=== PATIENT | female | born 1985 | race Caucasian/White ===

== ENCOUNTER 2017-05-02 13:01 | Emergency (ER) | payer MEDICAID, OTHER ==
[~2017-05-02] VITALS: Ht 152.4 cm; Wt 89.8 kg
[2017-05-02 14:05] VITALS: BP 128/80; PULSE 105
[2017-05-02 14:10] VITALS: BP 132/81; PULSE 101
[2017-05-02] MEDS ORDERED: DOXY10TA (14:19)
[2017-05-02 14:20] VITALS: BP 133/80; PULSE 106
[2017-05-02 14:30] VITALS: BP 136/79; PULSE 110; RESP 18; TEMP 98.2
[2017-05-02 15:00] VITALS: BP 125/83; PULSE 106
--- NOTE | 2017-05-02 15:01 | PD ---
HPI Chief Complaint HBP in office with Dr. Guzman Date Seen: May 02, 2017 Time Seen: 14:20 Travel History International Travel<30 Days: No Contact w/Intl Traveler<30Days: No Known Affected Area: No History of Present Illness HPI 32yo F at 33 wks presents to OB Triage with her for high blood pressure of 146mmHg systolic while in Dr. Guzman's office for her regular visit. She reports that she has had occasional headaches and was told in the past that she has had trace protein in urine, however for this visit she has not experienced any of those symptoms. She reports no blood or unusual discharge from vagina or with urination. She is not currently experiencing any pain, discomfort, or contraction like sensations. She denies smoking, drinking, and drugs. Her PMHx is significant for breast and ovarian cancer in her aunt and mother, respectively. She has no ongoing medical problems, no FamHx, and takes no medications, other than vitamins. She has a PSurgHx of laparoscopy a few years ago for endometriosis. Weeks Gestation: 33 Para: 0 : 1 Miscarriage: 0 : 0 History Past Medical History Medical History: Denies Significant Hx Obstetric History Obstetric History Past Surgical History Narrative Surgical Previous laparoscopy for evaluation of endometriosis a few years ago. Family History Narrative Family History Aunt - Breast CA Mother - Ovarian CA Social History Alcohol Use: No Tobacco Use: No Substance Abuse: No Allergies-Medications (Allergen,Severity, Reaction): Coded Allergies: No Known Allergies (Unverified , 05/02/17) Home Meds Reported Medications Doxylamine-Pyridoxine (Diclegis) 10-10 Mg Tab 05/02/17 Review of Systems Except as stated in HPI: all other systems reviewed are Neg HENT: Headaches (occasional headaches, none at time of exam) Gastrointestinal: Abdominal Pain ( pain) Physical Exam BP: 136/79mmHg HR: 100-110bpm Narrative GENERAL: Well-nourished, well-developed patient. SKIN: Warm and dry. CARDIOVASCULAR: Regular rate and rhythm without murmurs, gallops, or rubs. pulses equal bilaterally. RESPIRATORY: CTAB. Breath sounds equal bilaterally. No accessory muscle use. no rales, wheezes, or rhonchi. ABDOMEN/GI: Abdomen soft, non-tender, bowel sounds present, no rebound, no guarding Gravid to 33 weeks size EXTREMITIES: No cyanosis or edema. NEUROLOGICAL: Awake and alert and oriented to time, place, situation and person. CN II-XII intact. nonfocal. FHT's: Category: 1 Baseline: 130 Reactive: Y Variability: Mod Decels: None Contractions- q4 min- > irritability Cervical check- closed cervix -FFN negative Data Data Orders Orders Vital Signs (Adult) .ON ADMISSION (05/02/17 14:33) ^ Labor Status (05/02/17 14:33) Urinalysis - C+S If Indicated (05/02/17 14:33) ^ Non Stress Test (05/02/17 14:33) ^ Hydration (05/02/17 14:33) Cbc No Diff, Includes Plts (05/02/17 14:33) Comprehensive Metabolic Panel (05/02/17 14:33) Uric Acid (05/02/17 14:33) Protein Creat Ratio, Random Ur (05/02/17 14:33) MDM Medical Record Reviewed: Yes Narrative Course / MDM Note prepared by Jm Norton, MS4 Subsequent by Ryan Richards: Ms. Owens is a 32 yo G1 at 33 3/7 weeks who presents for concern for elevated BP at clinic today (SBP 146)- -VS measurements at OB ED have been reassuring -Cat 1 rhythm -mild contractions q4 min Plan: -Will check CBC, CMP, Uric acid, UA, protein/Cr ratio -Will continue to monitor EFM and CTG -Will give oral hydration Interval: -Contractions spaced out to irritability without regular contractions on oral hydration -BP normotensive (max SBP 136) -Labs: WBC- 12.5, Hgb 11.6, PLT 173 -CMP- K 3.3, Cr 0.38, LFT's- AST 12, ALT 18. Uric acid- 2 UA- no protein Urine protein/Cr ratio- 0.27 Cervical check- closed cervix -FFN negative Updated plan: -Reviewed labs with patient; patient reassured that she has a low probability of going into labor in the next 2 weeks. Patient understands need for continued BP monitoring. Patient will rest at home and follow-up with Dr. Guzman in 1-2 weeks Diagnosis Diagnosis: Primary Impression: Elevated blood pressure affecting , antepartum Disposition: 01 DISCHARGE HOME Condition: Stable Patient Instructions: General Instructions, Early Labor Signs (ED), Preeclampsia (ED) Ryan Richards MD, R3 May 02, 2017 15:01
[2017-05-02 16:10] LABS: HEMATOCRIT 33.9 % (35.0-46.0); HEMOGLOBIN 11.6 GM/DL (11.6-15.3); MEAN CELL VOLUME 94.7 FL (80.0-100.0); MEAN CORPUSCULAR HEMOGLOBIN 32.4 PG (27.0-34.0); MEAN CORPUSCULAR HGB CONC 34.2 % (32.0-36.0); MEAN PLATELET VOLUME 8.4 FL (7.0-11.0); PLATELET COUNT 173 TH/MM3 (150-450); RED BLOOD COUNT 3.58 MIL/MM3 (4.00-5.30); RED CELL DISTRIBUTION WIDTH 13.5 % (11.6-17.2); WHITE BLOOD COUNT 12.5 TH/MM3 (4.0-11.0)
[2017-05-02 16:17] LABS: BACTERIA, URINE RARE /hpf; BILIRUBIN, URINE NEG (NEG); BLOOD, URINE NEG (NEG); GLUCOSE,URINE NEG (NEG); KETONE, URINE NEG (NEG); MUCUS URINE FEW /lpf (OCC); NITRITE,URINE NEG (NEG); SQUAMOUS EPITHELIAL CELL URINE 2 /hpf (0-5); URINE COLOR YELLOW (YELLW/STRAW); URINE LEUKOCYTE ESTERASE TRACE (NEG)
[2017-05-02 16:21] LABS: ALBUMIN 2.9 GM/DL (3.4-5.0); AST (GOT) 12 U/L (15-37); BICARBONATE 23.6 MEQ/L (21.0-32.0); BLOOD UREA NITROGEN 4 MG/DL (7-18); CALCIUM 8.9 MG/DL (8.5-10.1); CHLORIDE 106 MEQ/L (98-107); CREATININE 0.38 MG/DL (0.50-1.00); GLOMERULAR FILTRATION RATE 198 ML/MIN (>89); GLUCOSE,RANDOM 83 MG/DL (74-106); SODIUM (NA) 138 MEQ/L (136-145)
[2017-05-02 16:22] LABS: ALT (GPT) 18 U/L (10-53)
[2017-05-02 16:24] LABS: ALKALINE PHOSPHATASE 112 U/L (45-117); TOTAL BILIRUBIN ADULT 0.2 MG/DL (0.2-1.0); TOTAL PROTEIN 6.6 GM/DL (6.4-8.2)
[2017-05-02 17:33] VITALS: BP 134/82; PULSE 98
== END 2017-05-02 18:56 | disposition home or self-care (01) ==
LOC: HOBED 13:01
DX: O13.3 Gestational [pregnancy-induced] hypertension without significant proteinuria, third trimester (principal); Z3A.33 33 weeks gestation of pregnancy
CPT/HCPCS: 59025; 80053; 81001; 82570; 82731; 84156; 84550; 85027

== ENCOUNTER 2017-05-18 12:19 | Emergency (ER) | payer MEDICAID ==
[~2017-05-18 12:19] MED LIST: DOXY10TA
[2017-05-18 13:07] VITALS: BP 137/92; PULSE 113
--- NOTE | 2017-05-18 13:13 | PD ---
HPI Chief Complaint elevated blood pressure in office Date Seen: May 18, 2017 Time Seen: 13:11 Travel History International Travel<30 Days: No Contact w/Intl Traveler<30Days: No Known Affected Area: No History of Present Illness HPI 32-year-old who is at 35 weeks [address] Guzman who comes in today with a high blood pressure in the office. Patient was seen for something similar 2 weeks ago and blood work was done that was normal and her blood pressure normalized as she remained in the OB ED. Patient denies any PIH symptoms at this point and is having good movement Weeks Gestation: 35 Para: 0 : 1 History Past Medical History Medical History: Denies Significant Hx Past Surgical History Narrative Surgical Laparoscopy Family History Family History: Negative Social History Alcohol Use: No Tobacco Use: No Substance Abuse: No Allergies-Medications (Allergen,Severity, Reaction): Coded Allergies: No Known Allergies (Unverified , 05/02/17) Home Meds Reported Medications Doxylamine-Pyridoxine (Diclegis) 10-10 Mg Tab 05/02/17 Review of Systems Except as stated in HPI: all other systems reviewed are Neg Physical Exam Narrative GENERAL: Well-nourished, well-developed patient. SKIN: Warm and dry. HEAD: Normocephalic and atraumatic. EYES: No scleral icterus. No injection or drainage. ENT: No nasal drainage noted. Mucous membranes pink. Airway patent. NECK: Supple, trachea midline. No JVD. CARDIOVASCULAR: Regular rate and rhythm without murmurs, gallops, or rubs. RESPIRATORY: Breath sounds equal bilaterally. No accessory muscle use. ABDOMEN/GI: Abdomen soft, non-tender, bowel sounds present, no rebound, no guarding Gravid to [-] weeks size 36 Fundal Height: [-] GENITOURINARY: Deferred External Genitalia: intact and normal in appearance BUS glands: [-] Cervix: [-] Dilatation: [-] Effacement: [-] Station: [-] Presentation: [-] Membranes: [intact or ruptured] Uterine Contractions: [-] Absent FHT's: Category: [-] 1 Baseline: [-] 140 Reactive: [-] Moderate Variability: [-] Moderate Decels: [-] Absent EXTREMITIES: No cyanosis or edema. BACK: Nontender without obvious deformity. No CVA tenderness. NEUROLOGICAL: Awake and alert. Motor and sensory grossly within normal limits. Five out of 5 muscle strength in all muscle groups. Normal speech. Data Data Vital Signs Reviewed: Yes Orders Orders Vital Signs (Adult) .ON ADMISSION (05/18/17 13:09) ^ Labor Status (05/18/17 13:09) Urinalysis - C+S If Indicated (05/18/17 13:09) ^ Non Stress Test (05/18/17 13:09) Diet Liquid (05/18/17 Lunch) Cbc No Diff, Includes Plts (05/18/17 13:09) Comprehensive Metabolic Panel (05/18/17 13:09) Uric Acid (05/18/17 13:09) Acetaminophen (Tylenol) (05/18/17 13:15) Us Ob Bpp Wo Nst (05/18/17 13:09) Protein Creat Ratio, Random Ur (05/18/17 13:09) Labs Laboratory Tests Test 05/18/17 13:10 White Blood Count 12.0 TH/MM3 Red Blood Count 4.05 MIL/MM3 Hemoglobin 13.0 GM/DL Hematocrit 38.4 % Mean Corpuscular Volume 94.8 FL Mean Corpuscular Hemoglobin 32.1 PG Mean Corpuscular Hemoglobin Concent 33.9 % Red Cell Distribution Width 13.8 % Platelet Count 183 TH/MM3 Mean Platelet Volume 8.4 FL Urine Color YELLOW Urine Turbidity CLOUDY Urine pH 7.5 Urine Specific [place] 1.015 Urine Protein 30 mg/dL Urine Glucose (UA) NEG mg/dL Urine Ketones NEG mg/dL Urine Occult Blood NEG Urine Nitrite NEG Urine Bilirubin NEG Urine Urobilinogen LESS THAN 2.0 MG/DL Urine Leukocyte Esterase LARGE Urine RBC 1 /hpf Urine WBC 4 /hpf Urine Squamous Epithelial Cells 17 /hpf Urine Transitional Epithelial Cells <1 /hpf Urine Amorphous Sediment FEW Urine Bacteria MOD /hpf Urine Mucus FEW /lpf Microscopic Urinalysis Comment CULTURE INDICATED Urine Random Creatinine 89 MG/DL Urine Random Total Protein 36 MG/DL Urine Protein/Creatinine Ratio 0.40 Blood Urea Nitrogen 7 MG/DL Creatinine 0.46 MG/DL Random Glucose 86 MG/DL Total Protein 7.0 GM/DL Albumin 3.1 GM/DL Calcium Level 9.8 MG/DL Uric Acid 2.6 MG/DL Alkaline Phosphatase 143 U/L Aspartate Amino Transf (AST/SGOT) 29 U/L Alanine Aminotransferase (ALT/SGPT) 26 U/L Total Bilirubin 0.2 MG/DL Sodium Level 138 MEQ/L Potassium Level 3.9 MEQ/L Chloride Level 106 MEQ/L Carbon Dioxide Level 24.0 MEQ/L Anion Gap 8 MEQ/L Estimat Glomerular Filtration Rate 158 ML/MIN [facility] Medical Record Reviewed: Yes Plan 32-year-old who is at 35-36 weeks gestation with intermittent mild hypertension, previous workup was 2 weeks ago that showed normal blood work. Will order a 24-hour urine protein collection and a follow-up to her OB physician now that her low pressures are much improved. BPP was done while the patient was here Diagnosis Diagnosis: Primary Impression: 35 weeks gestation of Additional Impression: Gestational hypertension Disposition: 01 DISCHARGE HOME Krysta Crabtree MD May 18, 2017 13:13
[2017-05-18 13:15] VITALS: BP 135/85; PULSE 103
[2017-05-18] MEDS ORDERED: ACETAMINOPHEN 325 MG TAB PO ONE (13:15)
[2017-05-18 13:30] VITALS: BP 109/85; PULSE 112
[2017-05-18 13:32] LABS: HEMATOCRIT 38.4 % (35.0-46.0); MEAN CELL VOLUME 94.8 FL (80.0-100.0); MEAN CORPUSCULAR HEMOGLOBIN 32.1 PG (27.0-34.0); MEAN CORPUSCULAR HGB CONC 33.9 % (32.0-36.0); MEAN PLATELET VOLUME 8.4 FL (7.0-11.0); PLATELET COUNT 183 TH/MM3 (150-450); RED BLOOD COUNT 4.05 MIL/MM3 (4.00-5.30); RED CELL DISTRIBUTION WIDTH 13.8 % (11.6-17.2)
[2017-05-18 13:40] LABS: AMORPHOUS SEDIMENT, URINE FEW; BACTERIA, URINE MOD /hpf; BILIRUBIN, URINE NEG (NEG); BLOOD, URINE NEG (NEG); GLUCOSE,URINE NEG (NEG); KETONE, URINE NEG (NEG); MUCUS URINE FEW /lpf (OCC); NITRITE,URINE NEG (NEG); PH, URINE 7.5 (5.0-8.5); SQUAMOUS EPITHELIAL CELL URINE 17 /hpf (0-5); TRANSITIONAL EPI CELLS, URINE <1 /hpf; URINE COLOR YELLOW (YELLW/STRAW); URINE LEUKOCYTE ESTERASE LARGE (NEG)
[2017-05-18 13:45] VITALS: BP 128/87; PULSE 102
[2017-05-18 13:54] LABS: ALBUMIN 3.1 GM/DL (3.4-5.0); ALT (GPT) 26 U/L (10-53); AST (GOT) 29 U/L (15-37); BLOOD UREA NITROGEN 7 MG/DL (7-18); CALCIUM 9.8 MG/DL (8.5-10.1); CHLORIDE 106 MEQ/L (98-107); CREATININE 0.46 MG/DL (0.50-1.00); GLOMERULAR FILTRATION RATE 158 ML/MIN (>89); GLUCOSE,RANDOM 86 MG/DL (74-106); SODIUM (NA) 138 MEQ/L (136-145)
[2017-05-18 13:57] LABS: ALKALINE PHOSPHATASE 143 U/L (45-117); TOTAL BILIRUBIN ADULT 0.2 MG/DL (0.2-1.0)
[2017-05-18 14:00] VITALS: BP 122/82; PULSE 96
== END 2017-05-18 16:29 | disposition home or self-care (01) ==
LOC: HOBED 12:19
DX: O13.3 Gestational [pregnancy-induced] hypertension without significant proteinuria, third trimester (principal); Z3A.35 35 weeks gestation of pregnancy; Z34.93 Encounter for supervision of normal pregnancy, unspecified, third trimester
CPT/HCPCS: 59025; 76816; 76819; 76820; 80053; 81001; 82570; 84156; 84157; 84550; 85027; 87086

== ENCOUNTER 2017-05-30 15:51 | Emergency (ER) | payer MEDICAID ==
[2017-05-30] VITALS (12 sets, daily range): BP systolic 122–145; BP diastolic 70–86; PULSE 80–91; TEMP 98.1
--- NOTE | 2017-05-30 17:27 | PD ---
HPI Chief Complaint High blood pressure in the office Date Seen: May 30, 2017 Travel History International Travel<30 Days: No Contact w/Intl Traveler<30Days: No Known Affected Area: No History of Present Illness HPI 32-year-old at 37 weeks 4 days comes in today with an elevated blood pressure in the office of 156/98. Patient has been seen several times here in the OB ED due to elevated blood pressures in the office. Her last full workup occurred May 18, her last 24-hour urine protein was done at the same time showed a total urine protein of 345. Group B strep is negative and her cervix was closed in the office today Weeks Gestation: 37 Para: 0 : 1 History Past Medical History Medical History: Denies Significant Hx Past Surgical History Narrative Surgical Diagnostic laparoscopy Family History Family History: Negative Social History Alcohol Use: No Tobacco Use: No Substance Abuse: No Allergies-Medications (Allergen,Severity, Reaction): Coded Allergies: No Known Allergies (Unverified , 05/02/17) Home Meds Reported Medications Doxylamine-Pyridoxine (Diclegis) 10-10 Mg Tab 05/02/17 Review of Systems Except as stated in HPI: all other systems reviewed are Neg Physical Exam Narrative GENERAL: Well-nourished, well-developed patient. SKIN: Warm and dry. HEAD: Normocephalic and atraumatic. EYES: No scleral icterus. No injection or drainage. ENT: No nasal drainage noted. Mucous membranes pink. Airway patent. NECK: Supple, trachea midline. No JVD. CARDIOVASCULAR: Regular rate and rhythm without murmurs, gallops, or rubs. RESPIRATORY: Breath sounds equal bilaterally. No accessory muscle use. ABDOMEN/GI: Abdomen soft, non-tender, bowel sounds present, no rebound, no guarding Gravid to [37-] weeks size Fundal Height: [-] GENITOURINARY: Deferred External Genitalia: intact and normal in appearance BUS glands: [-] Cervix: [-] Dilatation: [-] Effacement: [-] Station: [-] Presentation: [-] Membranes: [intact or ruptured] Uterine Contractions: [-Absent] FHT's: Category: [1-] Baseline: [140-] Reactive: [-] Moderate Variability: [-] Moderate Decels: [-] Absent EXTREMITIES: 2+ edema BACK: Nontender without obvious deformity. No CVA tenderness. NEUROLOGICAL: Awake and alert. Motor and sensory grossly within normal limits. Five out of 5 muscle strength in all muscle groups. Normal speech. Data Data Vital Signs Reviewed: Yes Group B Strep: Negative Labs Laboratory Tests Test 05/30/17 16:40 05/30/17 17:50 Urine Color YELLOW Urine Turbidity HAZY Urine pH 8.5 Urine Specific [place] 1.019 Urine Protein 30 mg/dL Urine Glucose (UA) NEG mg/dL Urine Ketones NEG mg/dL Urine Occult Blood NEG Urine Nitrite NEG Urine Bilirubin NEG Urine Urobilinogen LESS THAN 2.0 MG/DL Urine Leukocyte Esterase MOD Urine RBC 1 /hpf Urine WBC 4 /hpf Urine Squamous Epithelial Cells 3 /hpf Urine Bacteria MANY /hpf Urine Mucus FEW /lpf Microscopic Urinalysis Comment CULTURE INDICATED Urine Random Creatinine 110 MG/DL Urine Random Total Protein 39 MG/DL Urine Protein/Creatinine Ratio 0.35 Urine Opiates Screen NEG Urine Barbiturates Screen NEG Urine Amphetamines Screen NEG Urine Benzodiazepines Screen NEG Urine Cocaine Screen NEG Urine Cannabinoids Screen POS White Blood Count 9.4 TH/MM3 Red Blood Count 3.60 MIL/MM3 Hemoglobin 11.8 GM/DL Hematocrit 33.8 % Mean Corpuscular Volume 93.8 FL Mean Corpuscular Hemoglobin 32.7 PG Mean Corpuscular Hemoglobin Concent 34.9 % Red Cell Distribution Width 13.8 % Platelet Count 159 TH/MM3 Mean Platelet Volume 8.0 FL Blood Urea Nitrogen 7 MG/DL Creatinine 0.34 MG/DL Random Glucose 66 MG/DL Total Protein 6.6 GM/DL Albumin 2.8 GM/DL Calcium Level 8.7 MG/DL Uric Acid 2.8 MG/DL Alkaline Phosphatase 142 U/L Aspartate Amino Transf (AST/SGOT) 24 U/L Alanine Aminotransferase (ALT/SGPT) 20 U/L Total Bilirubin 0.3 MG/DL Sodium Level 138 MEQ/L Potassium Level 3.4 MEQ/L Chloride Level 105 MEQ/L Carbon Dioxide Level 24.6 MEQ/L Anion Gap 8 MEQ/L Estimat Glomerular Filtration Rate 225 ML/MIN [facility] Medical Record Reviewed: Yes Plan 32yo at 37-38 weeks gestation with gestational hypertension with proteinuria based on previous 24 hr urine protein. Blood pressures here have completely normalized with normal labs. Patient discussed with Dr Guzman today in office possibilities of induction of labor next week depending on blood pressure and labs. I have given her outpatient 24 hr urine protein collection but protein/creat ratio is available for his review. Follow up with OB provider within 48 hours for his recommendation Diagnosis Diagnosis: Primary Impression: 37 weeks gestation of Additional Impression: Gestational hypertension w/o significant proteinuria in 3rd trimester Disposition: 01 DISCHARGE HOME Krysta Crabtree MD May 30, 2017 17:27
[2017-05-30 18:23] LABS: HEMATOCRIT 33.8 % (35.0-46.0); HEMOGLOBIN 11.8 GM/DL (11.6-15.3); MEAN CELL VOLUME 93.8 FL (80.0-100.0); MEAN CORPUSCULAR HEMOGLOBIN 32.7 PG (27.0-34.0); MEAN CORPUSCULAR HGB CONC 34.9 % (32.0-36.0); PLATELET COUNT 159 TH/MM3 (150-450); RED CELL DISTRIBUTION WIDTH 13.8 % (11.6-17.2); WHITE BLOOD COUNT 9.4 TH/MM3 (4.0-11.0)
[2017-05-30 18:27] LABS: BACTERIA, URINE MANY /hpf; BILIRUBIN, URINE NEG (NEG); BLOOD, URINE NEG (NEG); GLUCOSE,URINE NEG (NEG); KETONE, URINE NEG (NEG); MUCUS URINE FEW /lpf (OCC); NITRITE,URINE NEG (NEG); PH, URINE 8.5 (5.0-8.5); SQUAMOUS EPITHELIAL CELL URINE 3 /hpf (0-5); URINE COLOR YELLOW (YELLW/STRAW); URINE LEUKOCYTE ESTERASE MOD (NEG)
[2017-05-30 18:43] LABS: ALBUMIN 2.8 GM/DL (3.4-5.0); ALT (GPT) 20 U/L (10-53); AST (GOT) 24 U/L (15-37); BICARBONATE 24.6 MEQ/L (21.0-32.0); BLOOD UREA NITROGEN 7 MG/DL (7-18); CALCIUM 8.7 MG/DL (8.5-10.1); CHLORIDE 105 MEQ/L (98-107); CREATININE 0.34 MG/DL (0.50-1.00); GLOMERULAR FILTRATION RATE 225 ML/MIN (>89); GLUCOSE,RANDOM 66 MG/DL (74-106); SODIUM (NA) 138 MEQ/L (136-145)
[2017-05-30 18:45] LABS: ALKALINE PHOSPHATASE 142 U/L (45-117); TOTAL BILIRUBIN ADULT 0.3 MG/DL (0.2-1.0); TOTAL PROTEIN 6.6 GM/DL (6.4-8.2)
== END 2017-05-30 20:12 | disposition home or self-care (01) ==
LOC: HOBED 15:51
DX: O13.3 Gestational [pregnancy-induced] hypertension without significant proteinuria, third trimester (principal); B96.89 Other specified bacterial agents as the cause of diseases classified elsewhere; F12.90 Cannabis use, unspecified, uncomplicated; Z3A.38 38 weeks gestation of pregnancy
CPT/HCPCS: 59025; 80053; 80307; 81001; 82570; 84156; 84550; 85027; 87086; 99283; G0481

== ENCOUNTER 2017-06-06 16:12 | Inpatient (IN) | payer MEDICAID ==
[2017-06-06] VITALS (31 sets, daily range): BP systolic 124–163; BP diastolic 61–93; PULSE 55–79; RESP 18–24; TEMP 98–98.4; O2SAT 94–100
[~2017-06-06] VITALS: Ht 149.9 cm; Wt 95.0 kg
[~2017-06-06 16:12] MED LIST changes: +LACTATED RINGER'S 1000 ML INJ 1,000 ML IV ONE; +LIDOCAINE 2%/EPINEPHrine PF 1:200,000 20ML SDV OTHER ONE; +ONDANSETRON HCL 4 MG/2 ML VIAL IV ONE; +OXYTOCIN 10 UNIT/ML AMP IV ONE; +PHENYLEPH/NS 1000 MCG/10 ML SYR IV ONE; +PROPOFOL 200 MG/20 ML AMP IV ONE; +SODIUM CHLORIDE 0.9% 20 ML VIAL IV ONE; +ceFAZolin INJ 1,000 MG VIAL IV ONE; +ePHEDrine/NS 25 MG/5 ML SYRINGE IV ONE
--- NOTE | 2017-06-06 16:42 | PD ---
HPI Chief Complaint Elevated blood pressure in the office Travel History International Travel<30 Days: No Contact w/Intl Traveler<30Days: No Known Affected Area: No History of Present Illness HPI 32-year-old , IUP at 38.3 care couple could by obesity, otherwise uncomplicated per patient report The patient presents from the office with elevated blood pressures for blood pressure evaluation. She was seen in OB diagnostics today for a biophysical profile was noted to have mildly elevated blood pressures in the 140s over 80s. She reports a were elevated and Dr. Guzman's office, but she is not sure what these blood pressures were. She denies any headache, visual changes, right upper quadrant or epigastric pain. She denies any painful contractions. She denies any leaking of fluid or vaginal bleeding. She reports good movement today. Weeks Gestation: 38 Para: 0 : 1 History Past Medical History Narrative Medical Obesity Obstetric History Obstetric History Past Surgical History Narrative Surgical Laparoscopy for endometriosis Family History Family History: Negative Social History Alcohol Use: No Tobacco Use: No Substance Abuse: No Allergies-Medications (Allergen,Severity, Reaction): Coded Allergies: No Known Allergies (Unverified , 05/02/17) Home Meds Reported Medications Doxylamine-Pyridoxine (Diclegis) 10-10 Mg Tab 05/02/17 Review of Systems Eyes: No: Diploplia, Blurred Vision, Visual changes, Pain, Photophobia, Other HENT: No: Headaches, Vertigo, Dental Difficulties, Lightheadedness, Other Gastrointestinal: No: Nausea, Vomiting, Diarrhea, Abdominal Pain, Hematemesis, Hematochezia, Constipation, Changes in Bowel Habits, Indigestion, Loss of Appetite, Other Physical Exam Narrative GENERAL: Well-nourished, well-developed patient. SKIN: Warm and dry. HEAD: Normocephalic and atraumatic. EYES: No scleral icterus. No injection or drainage. ENT: No nasal drainage noted. Mucous membranes pink. Airway patent. NECK: Supple, trachea midline. No JVD. CARDIOVASCULAR: Regular rate and rhythm without murmurs, gallops, or rubs. RESPIRATORY: Breath sounds equal bilaterally. No accessory muscle use. BREASTS: Bilateral exam showed no masses , no retractions, no nipple discharge. ABDOMEN/GI: Abdomen soft, non-tender, bowel sounds present, no rebound, no guarding Gravid GENITOURINARY: Deferred FHT's: heart tones in the 130s with moderate long-term variability, good accelerations, no decelerations noted. EXTREMITIES: No cyanosis or edema. BACK: Nontender without obvious deformity. NEUROLOGICAL: Awake and alert. Motor and sensory grossly within normal limits. Normal speech. Musculoskeletal: Grossly normal range of motion, gait, muscle strength Psychiatric: Grossly normal memory and affect Data Data Orders Orders Vital Signs (Adult) .ON ADMISSION (06/06/17 16:37) ^ Labor Status (06/06/17 16:37) Urinalysis - C+S If Indicated (06/06/17 16:37) ^ Non Stress Test (06/06/17 16:37) Cbc No Diff, Includes Plts (06/06/17 16:37) Comprehensive Metabolic Panel (06/06/17 16:37) Uric Acid (06/06/17 16:37) Protein Creat Ratio, Random Ur (06/06/17 16:38) MDM Plan Assessment/plan: 32-year-old 1. IUP at 38.3 2. Preeclampsia: Patient with elevated blood pressures, elevated PC ratio of 0.41, thrombocytopenia with a platelet decreased to 147,000, and weight gain of [address] Guzman would like to present seizure with delivery. I spoke with the patient and discussed the risks of induction of labor versus the risks of delivery as well as the risks of worsening preeclampsia with potential adverse maternal outcomes including but not limited to progression to eclampsia with maternal seizures/stroke, placental abruption, prolonged induction of labor with risks of chorioamnionitis and hemorrhage as well as other potential complications. The risks, benefits, and alternatives to delivery were discussed. The risks of were discussed including but not limited to pain, infection, bleeding, injury to other organs like the bladder, bowels, nerves, vessels, injury to the baby, need for repeat operation, need for hysterectomy, need for blood transfusion, wound infection and breakdown, and other possible complications all the patient's questions and her 's questions were answered and consent was signed. 3. Suspected macrosomia with maternal short stature: Patient with ultrasound today with approximately 9 pound estimated weight and the mother is 4 foot 11 inches tall 4. well-being: Reassuring testing with reactive NST and category 1 heart rate tracing. heart rate is reassuring and appropriate for gestational age 5. Hgb 11.7 Rachael Nettles MD Jun 06, 2017 16:42
--- NOTE | 2017-06-06 16:44 | HHI.PR ---
Subjective Remarks OB Hg NST report Indications: IUP at 38.3, obesity, elevated blood pressures heart tones in the 130s with moderate long-term variability, good accelerations, no decelerations noted. This is a category 1 heart rate tracing and reactive NST. Follow-up: Continue monitoring Final diagnosis: IUP at 30.3, obesity, preeclampsia Rachael Nettles MD Jun 06, 2017 16:44
[2017-06-06 17:12] LABS: HEMATOCRIT 34.5 % (35.0-46.0); HEMOGLOBIN 11.7 GM/DL (11.6-15.3); MEAN CELL VOLUME 94.3 FL (80.0-100.0); MEAN CORPUSCULAR HEMOGLOBIN 32.1 PG (27.0-34.0); MEAN PLATELET VOLUME 8.3 FL (7.0-11.0); PLATELET COUNT 146 TH/MM3 (150-450); RED BLOOD COUNT 3.66 MIL/MM3 (4.00-5.30); WHITE BLOOD COUNT 8.7 TH/MM3 (4.0-11.0)
[2017-06-06 17:23] LABS: AMORPHOUS SEDIMENT, URINE RARE; BACTERIA, URINE MANY /hpf; BILIRUBIN, URINE NEG (NEG); BLOOD, URINE TRACE (NEG); GLUCOSE,URINE NEG (NEG); KETONE, URINE NEG (NEG); MUCUS URINE MANY /lpf (OCC); NITRITE,URINE NEG (NEG); PH, URINE 6.5 (5.0-8.5); SQUAMOUS EPITHELIAL CELL URINE 13 /hpf (0-5); URINE COLOR YELLOW (YELLW/STRAW); URINE LEUKOCYTE ESTERASE LARGE (NEG)
[2017-06-06 17:30] LABS: ALBUMIN 2.8 GM/DL (3.4-5.0); ALT (GPT) 22 U/L (10-53); AST (GOT) 26 U/L (15-37); BICARBONATE 24.5 MEQ/L (21.0-32.0); BLOOD UREA NITROGEN 8 MG/DL (7-18); CALCIUM 8.8 MG/DL (8.5-10.1); CHLORIDE 106 MEQ/L (98-107); CREATININE 0.48 MG/DL (0.50-1.00); GLOMERULAR FILTRATION RATE 151 ML/MIN (>89); GLUCOSE,RANDOM 74 MG/DL (74-106); SODIUM (NA) 139 MEQ/L (136-145)
[2017-06-06 17:33] LABS: ALKALINE PHOSPHATASE 163 U/L (45-117); TOTAL BILIRUBIN ADULT 0.3 MG/DL (0.2-1.0)
[2017-06-06] MEDS ORDERED: LACTATED RINGER'S 1000 ML INJ 1,000 ML IV ONE (18:45)
[2017-06-06] MEDS ORDERED: LACTATED RINGER'S 1000 ML INJ 1,000 ML IV SCH (19:15)
--- NOTE | 2017-06-06 19:25 | HHI.HP ---
History & Physical H&P Patient Name: Sabi Owens Unit Number: [id number] Date of : 1985 Patient Status: Admitted Inpatient Attending Doctor: Oswaldo Guzman MD HPI HPI Chief Complaint Elevated blood pressure in the office Travel History International Travel<30 Days: No Contact w/Intl Traveler<30Days: No Known Affected Area: No History of Present Illness HPI 32-year-old , IUP at 38.3 care couple could by obesity, otherwise uncomplicated per patient report The patient presents from the office with elevated blood pressures for blood pressure evaluation. She was seen in OB diagnostics today for a biophysical profile was noted to have mildly elevated blood pressures in the 140s over 80s. She reports a were elevated and Dr. Guzman's office, but she is not sure what these blood pressures were. She denies any headache, visual changes, right upper quadrant or epigastric pain. She denies any painful contractions. She denies any leaking of fluid or vaginal bleeding. She reports good movement today. Weeks Gestation: 38 Para: 0 : 1 History (Limited) History Past Medical History Narrative Medical Obesity Obstetric History Obstetric History Past Surgical History Narrative Surgical Laparoscopy for endometriosis Family History Family History: Negative Social History Alcohol Use: No Tobacco Use: No Substance Abuse: No Allergies-Medications Allergies-Medications (Allergen,Severity, Reaction): Coded Allergies: No Known Allergies (Unverified , 05/02/17) Home Meds Reported Medications Doxylamine-Pyridoxine (Diclegis) 10-10 Mg Tab 05/02/17 ROS Review of Systems Eyes: No: Diploplia, Blurred Vision, Visual changes, Pain, Photophobia, Other HENT: No: Headaches, Vertigo, Dental Difficulties, Lightheadedness, Other Gastrointestinal: No: Nausea, Vomiting, Diarrhea, Abdominal Pain, Hematemesis, Hematochezia, Constipation, Changes in Bowel Habits, Indigestion, Loss of Appetite, Other Physical Exam Physical Exam Narrative GENERAL: Well-nourished, well-developed patient. SKIN: Warm and dry. HEAD: Normocephalic and atraumatic. EYES: No scleral icterus. No injection or drainage. ENT: No nasal drainage noted. Mucous membranes pink. Airway patent. NECK: Supple, trachea midline. No JVD. CARDIOVASCULAR: Regular rate and rhythm without murmurs, gallops, or rubs. RESPIRATORY: Breath sounds equal bilaterally. No accessory muscle use. BREASTS: Bilateral exam showed no masses , no retractions, no nipple discharge. ABDOMEN/GI: Abdomen soft, non-tender, bowel sounds present, no rebound, no guarding Gravid GENITOURINARY: Deferred FHT's: heart tones in the 130s with moderate long-term variability, good accelerations, no decelerations noted. EXTREMITIES: No cyanosis or edema. BACK: Nontender without obvious deformity. NEUROLOGICAL: Awake and alert. Motor and sensory grossly within normal limits. Normal speech. Musculoskeletal: Grossly normal range of motion, gait, muscle strength Psychiatric: Grossly normal memory and affect Data Data Data Orders Orders Vital Signs (Adult) .ON ADMISSION (06/06/17 16:37) ^ Labor Status (06/06/17 16:37) Urinalysis - C+S If Indicated (06/06/17 16:37) ^ Non Stress Test (06/06/17 16:37) Cbc No Diff, Includes Plts (06/06/17 16:37) Comprehensive Metabolic Panel (06/06/17 16:37) Uric Acid (06/06/17 16:37) Protein Creat Ratio, Random Ur (06/06/17 16:38) MDM MDM Plan Assessment/plan: 32-year-old 1. IUP at 38.3 2. Preeclampsia: Patient with elevated blood pressures, elevated PC ratio of 0.41, thrombocytopenia with a platelet decreased to 147,000, and weight gain of 20 [address] Guzman would like to present seizure with delivery. I spoke with the patient and discussed the risks of induction of labor versus the risks of delivery as well as the risks of worsening preeclampsia with potential adverse maternal outcomes including but not limited to progression to eclampsia with maternal seizures/stroke, placental abruption, prolonged induction of labor with risks of chorioamnionitis and hemorrhage as well as other potential complications. The risks, benefits, and alternatives to delivery were discussed. The risks of were discussed including but not limited to pain, infection, bleeding, injury to other organs like the bladder, bowels, nerves, vessels, injury to the baby, need for repeat operation, need for hysterectomy, need for blood transfusion, wound infection and breakdown, and other possible complications all the patient's questions and her 's questions were answered and consent was signed. 3. Suspected macrosomia with maternal short stature: Patient with ultrasound today with approximately 9 pound estimated weight and the mother is 4 foot 11 inches tall 4. well-being: Reassuring testing with reactive NST and category 1 heart rate tracing. heart rate is reassuring and appropriate for gestational age 5. Hgb 11.7 Rachael Nettles MD Jun 06, 2017 19:25
[2017-06-06] MEDS ORDERED: ceFAZolin 2 GM PREMIX 50 ML IV SCH (19:45)
[2017-06-06] MEDS ORDERED: MORPHINE SULFATE PF 5 MG/10 ML VIAL ONE (20:01)
[2017-06-06] MEDS ORDERED: ACETAMINOPHEN 1000 MG/100 ML 100 ML IV ONE ×2 (20:01→22:00)
[2017-06-06] MEDS ORDERED: CITRIC ACID-SODIUM CITRATE LIQ 30 ML UDC PO SCH (20:15)
[2017-06-06] MEDS ORDERED: EPIDURAL-DO NOT ADMINISTER ANTICOAGULANTS PRN (20:30)
[2017-06-06] MEDS ORDERED: EPIDURAL-NO SYSTEMIC NARCOTICS PRN (20:30)
[2017-06-06] MEDS ORDERED: EPIDURAL-DIPHENHYDRAMINE HCL 50 MG/ML VIAL IV PUSH PRN (20:30)
[2017-06-06] MEDS ORDERED: EPIDURAL-DIPHENHYDRAMINE HCL 50 MG CAP PO PRN (20:30)
[2017-06-06] MEDS ORDERED: EPIDURAL-NALOXONE HCL 0.4 MG/ML AMP IV PUSH PRN (20:30)
[2017-06-06] MEDS ORDERED: MAGNESIUM SULFATE 40 GM PREMIX 1,000 ML IV SCH (21:54)
[2017-06-06] MEDS ORDERED: OXYTOCIN 30 UNITS-500ML PREMIX 500 ML IV ONE ×2 (22:00)
[2017-06-06] MEDS ORDERED: ZOLPIDEM TARTRATE 5 MG TAB PO PRN (22:00)
[2017-06-06] MEDS ORDERED: SIMETHICONE 80 MG CHEWABLE TAB PO PRN (22:00)
[2017-06-06] MEDS ORDERED: CALCIUM GLUCONATE 10% 1 GM/10 ML VIAL IV PUSH PRN (22:00)
[2017-06-06] MEDS ORDERED: SODIUM CHLORIDE 0.9% FLUSH 10 ML FLUSH IV FLUSH PRN (22:00)
[2017-06-06] MEDS ORDERED: NIFEdipine 10 MG CAP PO PRN (22:00)
[2017-06-06] MEDS ORDERED: ONDANSETRON HCL 4 MG/2 ML VIAL IV PUSH PRN (22:00)
[2017-06-06] MEDS ORDERED: MAGNESIUM SULFATE 4 GM PREMIX 100 ML IV ONE (22:00)
[2017-06-06] MEDS ORDERED: OXYTOCIN 30 UNITS-500ML PREMIX 500 ML ONE (22:14)
[2017-06-06] MEDS: LACTATED RINGER'S 1000 ML INJ 1,000 ML IV SCH (22:30)
[2017-06-07] VITALS (34 sets, daily range): BP systolic 129–154; BP diastolic 63–96; PULSE 69–96; RESP 16–18; TEMP 97.6–98.2
[2017-06-07] MEDS ORDERED: PROMETHAZINE INJ 25 MG/ML VIAL IM ONE ×2 (02:45→03:00)
[2017-06-07] MEDS ORDERED: HYDROmorphone HCL PF 2 MG/ML VIAL IM ONE ×2 (02:45→03:00)
[2017-06-07 06:01] LABS: AUTOMATED NEUTROPHIL # 10.2 TH/MM3 (1.8-7.7); BASOPHIL % 0.2 % (0.0-2.0); EOSINOPHIL % 0.1 % (0.0-4.0); HEMATOCRIT 30.5 % (35.0-46.0); HEMOGLOBIN 10.6 GM/DL (11.6-15.3); LYMPH % 9.6 % (9.0-44.0); LYMPHOCYTE # 1.1 TH/MM3 (1.0-4.8); MEAN CELL VOLUME 93.7 FL (80.0-100.0); MEAN CORPUSCULAR HEMOGLOBIN 32.5 PG (27.0-34.0); MEAN CORPUSCULAR HGB CONC 34.7 % (32.0-36.0); MEAN PLATELET VOLUME 8.1 FL (7.0-11.0); MONO % 4.4 % (0.0-8.0); MONOCYTE # 0.5 TH/MM3 (0-0.9); NEUT % 85.7 % (16.0-70.0); PLATELET COUNT 125 TH/MM3 (150-450); RED BLOOD COUNT 3.26 MIL/MM3 (4.00-5.30); RED CELL DISTRIBUTION WIDTH 14.1 % (11.6-17.2); WHITE BLOOD COUNT 11.9 TH/MM3 (4.0-11.0)
[2017-06-07] MEDS: oxyCODONE/ACETAMINOPHEN 5 MG/325 MG TAB PO PRN ×4 (07:28→22:30)
[2017-06-07] MEDS: IBUPROFEN 600 MG TAB PO PRN ×3 (07:29→16:58)
[2017-06-07] MEDS: SODIUM CHLORIDE 0.9% FLUSH 10 ML FLUSH IV FLUSH SCH ×2 (07:46→21:00)
[2017-06-07] MEDS ORDERED: OXYTOCIN 30 UNITS-500ML PREMIX 500 ML IV PRN (08:00)
--- NOTE | 2017-06-07 08:45 | MP ---
cc: SONY GUZMAN DATE OF SURGERY 06/06/2017 PREOPERATIVE DIAGNOSIS 1. Intrauterine at 38 weeks. 2. Mild preeclampsia. 3. Short stature. 4. macrosomia. 5. Skin tag of mons pubis. POSTOPERATIVE DIAGNOSIS 1. Intrauterine at 38 weeks. 2. Mild preeclampsia. 3. Short stature. 4. macrosomia. 5. Skin tag of mons pubis. 6. 10% placental abruption. PROCEDURE Primary low transverse section and removal of skin tag the mons. ANESTHESIA Spinal. SURGEON Oswaldo Guzman M.D. FINDINGS Normal male with good Apgars, weight 8 pounds 11 ounces. Normal fallopian tubes, normal uterus, normal ovaries. Placenta had an old abruption, approximately 10% in the midportion of the placenta. COMPLICATIONS None. COUNTS Correct. ESTIMATED BLOOD LOSS 500 cc. FLUIDS Crystalloids. CONDITION The patient tolerated the procedure well and went to the recovery room in good condition. INDICATIONS FOR PROCEDURE This is a young lady who has been followed in my office and over the last several visits has had increased blood pressures. Today her blood pressures were markedly elevated. She had gained 20 pounds in 20 days. She had no signs or symptoms of preeclampsia but her protein to creatinine ratio was quite high. Her liver functions were normal. With the weight gain, the abnormal labs and increased blood pressure, the diagnosis of preeclampsia was made. I recommended section as her blood pressure was quite high and her cervix was not inducible; it was 1 cm, 50% effaced, very posterior, soft. The baby was very high. She agreed to proceed once we had discussed the risks and benefits of preeclampsia. PROCEDURE IN DETAIL The patient was taken to the operating room, identified by name band and verbally. She was given a spinal anesthetic. A Marin catheter was inserted. She was prepped and draped for section. A Pfannenstiel incision was taken down to the fascia. The fascia was taken off the rectus muscle by blunt and sharp dissection. The peritoneum was entered under direct vision without complication. The incision was extended with care to avoid the urinary bladder. A bladder blade was placed and a bladder flap created over the lower uterine segment which was well-developed. The uterus was then scored in a transverse manner along the lower uterine segment and taken down in the midline until the uterine cavity was entered. The incision was extended with the surgeon's finger. The vertex was grasped and delivered through the incision without difficulty. The hypopharynx and nasopharynx were suctioned. The remainder of the was delivered. The cord was doubly clamped and cut and the handed to the resuscitation team that was present. Cord blood was obtained. The placenta was delivered manually without difficulty. The uterus was curetted twice with a wet lap. The uterine incision was repaired with 2-0 Vicryl a running locking fashion, the second layer imbricating the first. The cul-de-sac and gutters were cleaned of blood and debris with a large amount of irrigation. The uterus was delivered back into the abdomen. The incision was again inspected and was hemostatic. The rectus muscles were re-approximated with 0 Vicryl in an interrupted fashion. The fascia was repaired with 0 Vicryl from lateral to midline bilaterally in a running fashion. The subcutaneous tissue was repaired with 3-0 Vicryl. The skin was repaired with 4-0 Monocryl in a subcuticular manner. Steri-Strips were applied. The wound was sterilely dressed. She tolerated the procedure well and went to the recovery room in good condition. R. MD MEME George/JESSICA /10:47 PM /8:15 AM
--- NOTE | 2017-06-07 12:06 | HHI.OB ---
Subjective Post Operative Day: 1 Objective Vitals/I&O Vital Signs Date Time Temp Pulse Resp B/P (MAP) Pulse Ox O2 Delivery O2 Flow Rate FiO2 06/07/17 11:38 17 06/07/17 11:38 98.1 06/07/17 11:35 77 141/80 (100) 06/07/17 11:00 18 06/07/17 10:17 74 143/92 (109) 06/07/17 10:00 17 06/07/17 09:19 88 149/96 (113) 06/07/17 09:00 18 06/07/17 08:17 89 141/93 (109) 06/07/17 07:24 85 151/89 (109) 06/07/17 07:19 98.1 18 06/07/17 06:03 87 06/07/17 06:03 150/95 (113) 06/07/17 06:02 18 06/07/17 05:03 81 136/87 (103) 06/07/17 05:02 18 06/07/17 04:01 96 18 154/94 (114) 06/07/17 03:01 97.6 80 143/91 (108) 06/07/17 03:00 18 06/07/17 02:02 87 143/91 (108) 06/07/17 02:01 18 06/07/17 01:01 70 129/82 (98) 06/07/17 01:01 18 06/07/17 00:01 92 18 148/92 (110) 06/06/17 23:37 79 18 151/85 (107) 06/06/17 23:37 98.0 06/06/17 23:15 163/83 (109) 06/06/17 23:14 77 18 97 06/06/17 23:05 156/82 (106) 06/06/17 23:00 98.0 06/06/17 22:55 154/90 (111) 06/06/17 22:53 77 151/89 (109) 98 06/06/17 22:53 24 06/06/17 22:45 75 06/06/17 22:45 23 94 06/06/17 22:40 124/74 (91) 06/06/17 22:30 72 20 130/71 (90) 96 06/06/17 22:25 100 06/06/17 22:25 20 124/61 (82) 06/06/17 22:15 64 20 129/64 (85) 99 06/06/17 22:00 75 23 129/68 (88) 98 06/06/17 21:50 100 06/06/17 19:20 70 06/06/17 19:16 69 153/93 (113) 06/06/17 19:15 70 06/06/17 19:06 98.4 06/06/17 19:04 57 18 157/83 (107) 06/06/17 17:16 62 140/76 (97) 06/06/17 17:15 64 06/06/17 17:10 72 06/06/17 17:05 72 06/06/17 17:01 55 138/77 (97) 06/06/17 17:00 55 06/06/17 16:51 18 06/06/17 16:45 65 06/06/17 16:45 66 150/92 (111) 06/06/17 16:40 68 06/06/17 16:35 75 06/06/17 16:30 64 153/91 (111) 06/06/17 16:30 69 06/06/17 16:29 63 154/79 (104) Result Diagram: 06/07/17 0458 06/06/17 8695 Objective Remarks GENERAL: Well-nourished, well-developed patient. CARDIOVASCULAR: Regular rate and rhythm without murmurs, gallops, or rubs. RESPIRATORY: Breath sounds equal bilaterally. No accessory muscle use. ABDOMEN/GI: Abdomen soft, non-tender, bowel sounds present. Incision: pressure dressing, Clean, dry and intact. Fundus: Firm, non-tender at umbilicus. GENITOURINARY: Light to moderate bleeding, paulson to bsd clear. EXTREMITIES: No cyanosis or edema, non-tender, without signs of DVT, sequential on bilateral lower extremities Medications and IVs Current Medications Medications (Trade) Dose Ordered Sig/Rupesh Route Start Time Stop Time Status Last Admin Lactated Ringer's 1,000 ml @ 100 mls/hr Q10H IV 06/07/17 02:54 06/07/17 22:53 06/06/17 22:30 Oxytocin 500 ml @ 100 mls/hr UNSCH X1 PRN IV 06/07/17 08:00 06/08/17 07:59 (NS Flush) 2 ml BID IV FLUSH 06/07/17 09:00 (NS Flush) 2 ml UNSCH PRN IV FLUSH 06/06/17 22:00 (Mylicon Chew) 80 mg QID PRN PO 06/06/17 22:00 (Motrin) 600 mg Q6H PRN PO 06/06/17 22:00 06/07/17 07:29 (Percocet 5-325 Mg) 1 tab Q4H PRN PO 06/06/17 22:00 (Percocet 5-325 Mg) 2 tab Q4H PRN PO 06/06/17 22:00 06/07/17 11:48 Cefazolin Sodium 1000 mg/Sodium Chloride 100 ml @ 200 mls/hr Q8H IV 06/07/17 04:00 06/07/17 12:29 06/07/17 11:41 (Saida-Colace) 2 tab Q12H PRN PO 06/06/17 22:00 (Ambien) 5 mg HS PRN PO 06/06/17 22:00 (M-M-R Ii Inj) 0.5 ml ONCE ONCE SQ 06/07/17 16:00 06/07/17 16:01 (Boostrix Inj) 0.5 ml ONCE ONCE IM 06/07/17 16:00 06/07/17 16:01 (Zofran Inj) 4 mg Q6H PRN IV PUSH 06/06/17 22:00 Magnesium Sulfate 1,000 ml @ 50 mls/hr Q20H IV 06/06/17 21:54 06/06/17 22:45 (Procardia) 10 mg NOW PRN PO 06/06/17 22:00 06/07/17 21:59 (Calcium Gluconate Inj) 1 gm UNSCH PRN IV PUSH 06/06/17 22:00 Miscellaneous Information NO SYSTEMIC NARCOTICS TO BE GIVEN FO... UNSCH PRN .XX 06/06/17 20:30 06/07/17 19:29 (Narcan Inj) 0.4 mg UNSCH PRN IV PUSH 06/06/17 20:30 06/07/17 19:29 (Benadryl Inj) 25 mg Q6H PRN IV PUSH 06/06/17 20:30 06/07/17 19:29 (Benadryl) 50 mg Q6H PRN PO 06/06/17 20:30 06/07/17 19:29 Miscellaneous Information ALL NURSING DEPARTMENTS UNSCH PRN .XX 06/06/17 20:30 06/07/17 19:29 Assessment/Plan Problem List: (1) [place] ICD Codes: N91.2 - Amenorrhea, unspecified Plan: daily oral iron once she is no longer taking pain medication (2) Preeclampsia ICD Codes: O14.90 - Unspecified pre-eclampsia, unspecified trimester Plan: monitor bp and signs and symptoms (3) Thrombocythemia ICD Codes: D47.3 - Essential (hemorrhagic) thrombocythemia Status: Resolved Plan: monitor labs (4) S/P primary low transverse ICD Codes: Z98.891 - History of uterine scar from previous surgery Plan: routine Assessment and Plan POD #1 pt doing well pain well managed with oral pain medication bp's 140's /80-90's pt on magnesium sulfate, to be dc later tonight labs stable, will monitor labs and s/s of pre-eclampsia pt bonding with routine care for c/section Discharge Planning dc home in 2 days Micki Haynes Jun 07, 2017 12:06
[2017-06-07] MEDS: LACTATED RINGER'S 1000 ML INJ 1,000 ML IV SCH ×2 (12:54→18:11)
[2017-06-07] MEDS ORDERED: DIPHTH/TETANUS/ACEL PERTUSSIS (BOOSTER) 0.5 ML VIAL/PFS IM ONE (16:00)
[2017-06-07] MEDS ORDERED: MEASLES, MUMPS, RUBELLA VACCINE 0.5 ML VIAL SQ ONE (16:00)
[2017-06-07] MEDS ORDERED: MORPHINE SULFATE 8 MG/ML INJ IV PUSH PRN (17:45)
[2017-06-08] VITALS (7 sets, daily range): BP systolic 136–153; BP diastolic 72–100; PULSE 70–92; RESP 16–18; TEMP 98.1–98.4; O2SAT 97
[2017-06-08] MEDS: IBUPROFEN 600 MG TAB PO PRN ×4 (00:45→19:03)
[2017-06-08] MEDS: DOCUSATE SODIUM 50 MG/SENNA 8.6 MG TAB PO PRN ×2 (00:45→17:01)
[2017-06-08] MEDS: oxyCODONE/ACETAMINOPHEN 5 MG/325 MG TAB PO PRN ×6 (00:46→22:49)
[2017-06-08 05:58] LABS: HEMOGLOBIN 9.7 GM/DL (11.6-15.3); MEAN CELL VOLUME 93.1 FL (80.0-100.0); MEAN CORPUSCULAR HEMOGLOBIN 32.3 PG (27.0-34.0); MEAN CORPUSCULAR HGB CONC 34.7 % (32.0-36.0); MEAN PLATELET VOLUME 7.9 FL (7.0-11.0); PLATELET COUNT 168 TH/MM3 (150-450); WHITE BLOOD COUNT 11.8 TH/MM3 (4.0-11.0)
--- NOTE | 2017-06-08 10:22 | HHI.OB ---
Subjective Post Operative Day: 2 Objective Vitals/I&O Vital Signs Date Time Temp Pulse Resp B/P (MAP) Pulse Ox O2 Delivery O2 Flow Rate FiO2 06/08/17 02:50 98.4 06/08/17 02:50 78 16 136/78 (97) 06/08/17 02:00 78 136/72 (93) 06/08/17 00:46 16 06/07/17 20:21 98.2 84 16 148/92 (110) 06/07/17 17:52 71 140/83 (102) 06/07/17 17:00 17 06/07/17 16:57 75 145/63 (90) 06/07/17 15:59 142/87 (105) 06/07/17 15:56 16 06/07/17 15:56 69 142/87 (105) 06/07/17 15:00 17 06/07/17 14:56 95 151/96 (114) 06/07/17 14:55 98.1 18 06/07/17 14:00 16 06/07/17 14:00 98.1 06/07/17 13:59 79 148/84 (105) 06/07/17 12:55 93 16 153/93 (113) 06/07/17 12:52 92 06/07/17 11:38 17 06/07/17 11:38 98.1 06/07/17 11:35 77 141/80 (100) 06/07/17 11:00 18 Result Diagram: 06/08/17 0500 06/06/17 1635 Objective Remarks GENERAL: Well-nourished, well-developed patient. CARDIOVASCULAR: Regular rate and rhythm without murmurs, gallops, or rubs. RESPIRATORY: Breath sounds equal bilaterally. No accessory muscle use. ABDOMEN/GI: Abdomen soft, non-tender, bowel sounds present. Incision: pressure dressing, Clean, dry and intact. Fundus: Firm, non-tender at umbilicus. GENITOURINARY: moderate bleeding, EXTREMITIES: No cyanosis, non-tender, without signs of DVT, slight edema to bilateral lower extremities Medications and IVs Current Medications Medications (Trade) Dose Ordered Sig/Rupesh Route Start Time Stop Time Status Last Admin (NS Flush) 2 ml BID IV FLUSH 06/07/17 09:00 06/07/17 21:00 (NS Flush) 2 ml UNSCH PRN IV FLUSH 06/06/17 22:00 (Mylicon Chew) 80 mg QID PRN PO 06/06/17 22:00 (Motrin) 600 mg Q6H PRN PO 06/06/17 22:00 06/08/17 04:07 (Percocet 5-325 Mg) 1 tab Q4H PRN PO 06/06/17 22:00 06/08/17 00:46 (Percocet 5-325 Mg) 2 tab Q4H PRN PO 06/06/17 22:00 06/08/17 08:26 (Saida-Colace) 2 tab Q12H PRN PO 06/06/17 22:00 06/08/17 00:45 (Ambien) 5 mg HS PRN PO 06/06/17 22:00 (Zofran Inj) 4 mg Q6H PRN IV PUSH 06/06/17 22:00 06/07/17 17:52 (Calcium Gluconate Inj) 1 gm UNSCH PRN IV PUSH 06/06/17 22:00 (Morphine Inj) 6 mg Q4H PRN IV PUSH 06/07/17 17:45 06/07/17 17:52 Assessment/Plan Problem List: (1) [place] ICD Codes: N91.2 - Amenorrhea, unspecified Plan: Venofer in hospital and daily oral iron once she is no longer taking pain medication (2) Preeclampsia ICD Codes: O14.90 - Unspecified pre-eclampsia, unspecified trimester Plan: monitor bp and signs and symptoms (3) Thrombocythemia ICD Codes: D47.3 - Essential (hemorrhagic) thrombocythemia Status: Resolved Plan: monitor labs (4) S/P primary low transverse ICD Codes: Z98.891 - History of uterine scar from previous surgery Plan: routine Assessment and Plan POD #2 pt doing well pain well managed with oral pain medication bp's 130's /70's, improving platelets have returned to normal we will treat anemia with a few doses of Venofer iv pt to shower today and remove dressing pt bonding/breast feeding routine care for c/section Discharge Planning dc home tomorrow Micki Haynes Jun 08, 2017 10:21
[2017-06-08] MEDS: IRON SUCROSE INJ 200 MG in SODIUM CHLORIDE 0.9% INJ 100 ML IV SCH (12:04)
[2017-06-09] VITALS: BP 148/91; PULSE 71; RESP 18; TEMP 97.6; O2SAT 97
[2017-06-09] MEDS: oxyCODONE/ACETAMINOPHEN 5 MG/325 MG TAB PO PRN ×3 (03:52→12:02)
[2017-06-09] MEDS: IBUPROFEN 600 MG TAB PO PRN ×2 (03:52→09:45)
[2017-06-09 04:00] VITALS: BP 151/94; PULSE 90; RESP 20; TEMP 98.3; O2SAT 96
[2017-06-09 08:00] VITALS: BP 128/87
[2017-06-09] MEDS: DOCUSATE SODIUM 50 MG/SENNA 8.6 MG TAB PO PRN (08:14)
--- NOTE | 2017-06-09 09:05 | HHI.OB ---
Subjective Post Operative Day: 3 Objective Vitals/I&O Vital Signs Date Time Temp Pulse Resp B/P (MAP) Pulse Ox O2 Delivery O2 Flow Rate FiO2 06/09/17 08:00 128/87 (101) 06/09/17 04:00 98.3 90 20 151/94 (113) 96 06/09/17 00:00 97.6 71 18 148/91 (110) 97 06/08/17 20:00 98.2 70 18 152/86 (108) 97 06/08/17 17:00 142/96 (111) 06/08/17 16:00 98.1 75 18 06/08/17 16:00 151/100 (117) 06/08/17 12:00 98.4 92 16 148/89 (108) Result Diagram: 06/08/17 0500 06/06/17 1635 Objective Remarks GENERAL: Well-nourished, well-developed patient. CARDIOVASCULAR: Regular rate and rhythm without murmurs, gallops, or rubs. RESPIRATORY: Breath sounds equal bilaterally. No accessory muscle use. ABDOMEN/GI: Abdomen soft, non-tender, bowel sounds present. Incision: Clean, dry and intact. Fundus: Firm, non-tender at umbilicus. GENITOURINARY: moderate bleeding, EXTREMITIES: No cyanosis, non-tender, without signs of DVT, +1 edema to bilateral lower extremities Medications and IVs Current Medications Medications (Trade) Dose Ordered Sig/Rupesh Route Start Time Stop Time Status Last Admin (NS Flush) 2 ml BID IV FLUSH 06/07/17 09:00 06/07/17 21:00 (NS Flush) 2 ml UNSCH PRN IV FLUSH 06/06/17 22:00 (Mylicon Chew) 80 mg QID PRN PO 06/06/17 22:00 (Motrin) 600 mg Q6H PRN PO 06/06/17 22:00 06/09/17 03:52 (Percocet 5-325 Mg) 1 tab Q4H PRN PO 06/06/17 22:00 06/08/17 00:46 (Percocet 5-325 Mg) 2 tab Q4H PRN PO 06/06/17 22:00 06/09/17 08:15 (Saida-Colace) 2 tab Q12H PRN PO 06/06/17 22:00 06/09/17 08:14 (Ambien) 5 mg HS PRN PO 06/06/17 22:00 (Zofran Inj) 4 mg Q6H PRN IV PUSH 06/06/17 22:00 06/07/17 17:52 (Calcium Gluconate Inj) 1 gm UNSCH PRN IV PUSH 06/06/17 22:00 (Morphine Inj) 6 mg Q4H PRN IV PUSH 06/07/17 17:45 06/07/17 17:52 Iron Sucrose 200 mg/Sodium Chloride 110 ml @ 110 mls/hr DAILY IV 06/08/17 11:00 06/10/17 09:59 06/08/17 12:04 Assessment/Plan Problem List: (1) [place] ICD Codes: N91.2 - Amenorrhea, unspecified Plan: Venofer in hospital and daily oral iron once she is no longer taking pain medication (2) Preeclampsia ICD Codes: O14.90 - Unspecified pre-eclampsia, unspecified trimester Plan: monitor bp and signs and symptoms (3) Thrombocythemia ICD Codes: D47.3 - Essential (hemorrhagic) thrombocythemia Status: Resolved Plan: monitor labs (4) S/P primary low transverse ICD Codes: Z98.891 - History of uterine scar from previous surgery Plan: routine Assessment and Plan POD #3 pt doing well pain well managed with oral pain medication there are a few elevated bp, pt states she was stressed, current bp wnl, no s/s of pre-eclampsia second dose of Venofer today breast feeding going well routine care for c/section Discharge Planning dc home today will f/u next week for bp check Micki Haynes Jun 09, 2017 09:05
--- NOTE | 2017-06-09 09:11 | HHI.DS ---
Admission Date Jun 06, 2017 at 19:02 Discharge Date: Jun 09, 2017 Admitting Diagnosis 38 week macrosomia thrombocytopenia preeclampsia Diagnosis: (1) S/P primary low transverse ICD Codes: Z98.891 - History of uterine scar from previous surgery (2) [place] ICD Codes: N91.2 - Amenorrhea, unspecified (3) Preeclampsia ICD Codes: O14.90 - Unspecified pre-eclampsia, unspecified trimester (4) Thrombocythemia ICD Codes: D47.3 - Essential (hemorrhagic) thrombocythemia Status: Resolved Delivery Date: Jun 09, 2017 : Primary Reason: pre-eclampsia macrosomia Infant: Male Brief History 32-year-old , IUP at 38.3 care couple could by obesity, otherwise uncomplicated per patient report The patient presents from the office with elevated blood pressures for blood pressure evaluation. She was seen in OB diagnostics today for a biophysical profile was noted to have mildly elevated blood pressures in the 140s over 80s. She reports a were elevated and Dr. Guzman's office, but she is not sure what these blood pressures were. She denies any headache, visual changes, right upper quadrant or epigastric pain. She denies any painful contractions. She denies any leaking of fluid or vaginal bleeding. She reports good movement today. Hospital Course 38 week preeclampsia thrombocytopenia macrosomia primary c section routine care Pt Condition on Discharge: Good Discharge Disposition: Discharge Home Discharge Instructions Diet Instructions: As Tolerated, No Restrictions Additional Diet Instructions: Drink at least 8 - 16 oz bottles of water a day Activities You Can Perform: Shower Only-No Bath Activities to Avoid: Prolonged Standing, Strenuous Activity, Sexual Activity Additional Activity Instruc.: No driving until off pain medications Do not lift anything heavier than your baby in an carrier Follow up Referrals: [facility] BUSINESS DEVELOPMENT - 1 Week @ [facility] [place] Micki Haynes Jun 09, 2017 09:11
[2017-06-09] MEDS: IRON SUCROSE INJ 200 MG in SODIUM CHLORIDE 0.9% INJ 100 ML IV SCH (09:45)
[2017-06-09] MEDS ORDERED: OXYC1TAB63 PO (13:51)
[2017-06-09] MEDS ORDERED: IBUP-232 PO (13:51)
== END 2017-06-09 15:00 | disposition home or self-care (01) | DRG 765 ==
LOC: HOBED 16:12 → H2EB 19:02 → H2EA 21:49 → H1EA 06-07 20:58
PROVIDERS: ADMIT Obstetrics & Gynecology; ATTEND Obstetrics & Gynecology
PROC: 10D00Z1 Extraction of Products of Conception, Low, Open Approach (ICD-10-PCS; principal; 2017-06-06)
PROC: 0HB9XZZ Excision of Perineum Skin, External Approach (ICD-10-PCS; 2017-06-06)
DX: O14.04 Mild to moderate pre-eclampsia, complicating childbirth (principal); Z68.41 Body mass index [BMI] 40.0-44.9, adult; D69.6 Thrombocytopenia, unspecified; O45.93 Premature separation of placenta, unspecified, third trimester; O99.214 Obesity complicating childbirth; O99.12 Other diseases of the blood and blood-forming organs and certain disorders involving the immune mechanism complicating childbirth; E66.9 Obesity, unspecified; D64.9 Anemia, unspecified; O36.63X0 Maternal care for excessive fetal growth, third trimester, not applicable or unspecified; L91.8 Other hypertrophic disorders of the skin; O99.02 Anemia complicating childbirth; Z37.0 Single live birth; Z3A.38 38 weeks gestation of pregnancy
CPT/HCPCS: 36415; 59025; 76816; 80053; 80307; 81001; 82570; 84156; 84550; 85025; 85027; 85461; 86850; 86900; 86901; 87086; 88304; 88307; 90384; J0131; J0690; J1170; J1756; J2270; J2274; J2370; J2405; J2550; J2590; J2790; J3010; J3475; J7120